=== PATIENT | male | born 1980 | race Two or more races ===

== ENCOUNTER 2017-05-29 13:06 | Outpatient (CLI) ==
[2017-05-29 13:27] LABS: BASOPHILS % (AUTO) 0.6 % (0.0-3.0); EOSINOPHILS # (AUTO) 0.2 K/ul (0.0-0.7); HEMATOCRIT 44.6 % (42.0-52.0); HEMOGLOBIN 15.9 g/dl (14.0-18.0); IMMATURE GRANULOCYTE % (AUTO) 0.2 % (0.0-5.0); LYMPHOCYTES # (AUTO) 1.4 K/uL (0.60-3.4); LYMPHOCYTES % (AUTO) 28.3 (10.0-50.0); MEAN CORPUSCULAR HEMOGLOBIN 29.5 pg (27.0-31.0); MEAN CORPUSCULAR HGB CONC 35.7 (31.8-35.4); MEAN CORPUSCULAR VOLUME 82.7 fl (80.0-94.0); MONOCYTES # (AUTO) 0.4 K/uL (0.4-2.0); MONOCYTES % (AUTO) 8.5 (0-10); NEUTROPHILS # (AUTO) 2.8 K/ul (2.0-6.9); NEUTROPHILS % (AUTO) 57.4; PLATELET COUNT 204 10^3/uL (140-440); RED BLOOD COUNT 5.39 10^6/ul (4.70-6.10); WHITE BLOOD COUNT 4.81 K/ul (4.2-10.2)
[2017-05-29 14:01] LABS: ALBUMIN 3.5 g/dL (3.4-5.0); ANION GAP 13.9; BILIRUBIN,TOTAL 0.4 mg/dL (0.00-1.20); BUN/CREATININE RATIO 14.81; CALCIUM 9.3 mg/dL (8.2-10.2); CHOL/HDL RATIO 3.8 (4.5-6.4); CREATININE 0.81 mg/dL (0.60-1.10); POTASSIUM 3.9 mmol/L (3.5-5.1)
== END 2017-05-29 13:07 | disposition home or self-care (01) ==
LOC: LAB 13:06
PROVIDERS: ATTEND Nurse Practitioner Family
DX: E75.6 Lipid storage disorder, unspecified (principal); F41.9 Anxiety disorder, unspecified; I10 Essential (primary) hypertension; L65.9 Nonscarring hair loss, unspecified
CPT/HCPCS: 36415; 80053; 80061; 84402; 84439; 84443; 85025